=== PATIENT | male | born 1965 | race Caucasian/White ===

== ENCOUNTER 2024-06-13 13:23 | Emergency (ER) | payer MEDICAID, SELFPAY ==
--- NOTE | ~2024-06-13 | US_ITS ---
EXAMINATION: US TRIPLEX LOWER EXTREMITY, BILATERAL CLINICAL INFORMATION: Swelling, lower extremities COMPARISON: None available. TECHNIQUE: Color-flow triplex imaging with spectral analysis and compression Doppler were performed on the bilateral lower extremities. FINDINGS: Respiratory variation, normal compression and augmented flow are noted throughout the bilateral lower extremities. The visualized common femoral vein, superficial femoral vein, profunda femoral vein, popliteal vein and midcalf peroneal and posterior tibial venous segments show no evidence of deep venous thrombosis bilaterally. There is no Newton's cyst. US/US venous duplex LE BI IMPRESSION: No acute deep venous thrombosis in the interrogated veins, both lower extremities. Electronically signed by: Leno Edmondson MD 06/13/2024 03:56 PM EST
--- NOTE | ~2024-06-13 | XR_ITS ---
EXAMINATION: XR CHEST 2 VIEW CLINICAL INFORMATION: Leg edema and left chest pain COMPARISON: None TECHNIQUE: PA and lateral views of the chest obtained. FINDINGS: The lungs are clear. There are no pleural effusions. The cardiomediastinal silhouette is normal. There are posttraumatic deformities of the left seventh, eighth and ninth posterior lateral ribs, appearing chronic, with some underlying scar formation. XR/XR chest 2V IMPRESSION: 1. No active cardiopulmonary disease. 2. Chronic appearing left seventh, eighth and ninth rib fractures. Electronically signed by: Malcolm Cuellar MD 06/13/2024 02:19 PM EST
[2024-06-13 13:53] VITALS: BP 122/57; BP 150/70; PULSE 103; PULSE 95; RESP 16; TEMP 36; O2SAT 97; O2SAT 99; BMI 23.6
--- NOTE | 2024-06-13 13:53 | ED_ITS ---
HPI - Extremity Injury (Lower) General Chief Complaint: Extremity Injury, Lower Stated Complaint: BLE PAIN/SWELLING,H/O BROKEN L FOOT PER EMS Time Seen by Provider: 06/13/24 13:53 Source: patient, EMS and RN notes reviewed Mode of arrival: EMS Limitations: no limitations History of Present Illness ED Provider: JESUS WILDER PA-C HPI Narrative: 59 year old female assigned male at presents to the ED today via EMS from [facility] on a [address] for evaluation of bilateral foot/ankle pain/ swelling x3 days. Also reports left sided chest discomfort. Pain is not worse with deep breathing. She cannot reproduce the pain. No associated shortness of breath. She denies any trauma/ injury/ falls. She has not taken anything for the pain. Admits she is currently on hormone therapy for gender change. No recent travel or long car rides. Reports fracture left ankle over 10 years ago. Denies new injury. Denies SI/HI at present. Related Data Allergies Allergy/AdvReac Type Severity Reaction Status Date / Time No Known Allergies Allergy Verified 06/13/24 14:00 Review of Systems 2 Review of Systems: Constitutional: No fever, chills, fatigue, night sweats, weight changes ENT/Mouth: No ear pain, hearing loss, nasal congestion, sinus pain, rhinorrhea, sore throat Eyes: No eye pain, swelling, redness, vision changes, discharge Cardio: No chest pain, palpitations, FRANKS, orthopnea, peripheral edema Pulm: No SOB, cough, sputum, wheezing, dyspnea, hemoptysis GI: No nausea, vomiting, hematemesis, abdominal pain, diarrhea, constipation, hematochezia, melena : No irregular bleeding, dysuria, frequency, urgency, hesitancy, hematuria, flank pain, urinary flow changes, urinary incontinence or retention MSK: No back pain, neck pain, joint pain, myalgias, +LE pain/ swelling Skin: No lesions, rashes Neuro: No weakness, numbness, paresthesias, LOC, dizziness, headache Psych: No anxiety/panic, depression, SI/HI, AH/VH All other systems reviewed and are negative. [facility] Past Medical History Attestation statement: The following information was validated with the patient. Source: old records reviewed and nursing notes reviewed Social History Social History Smoked in Last 30 Days: No Use of substances other than those prescribed or required for medical reasons: No Advance Directives: No Advance Directives Information Provided: No Physical Exam 2 Vital Signs: Vital Signs: Last Vital Signs Temp 97.6 F 06/13/24 19:05 Pulse 89 06/13/24 19:05 Resp 18 06/13/24 19:05 BP 127/64 06/13/24 19:05 Pulse Ox 99 06/13/24 19:05 O2 Del Method Room Air 06/13/24 19:05 BMI result Body Mass Index 23.6 vital signs stable. afebrile. not tachycardic. not hypoxic. General: Well appearing, in no acute distress. Skin: Warm, dry, intact. No rashes or lesions. Head: Normocephalic, atraumatic. EENT: Hearing is intact b/l. Conjunctiva clear. PERRLA. EOM intact. Moist mucous membranes.? Cardiac: Chest wall symmetric. RRR. No JVD. Lungs: Normal respiratory effort without accessory muscle use. CTA bilaterally. No crackles. Back: No midline spinous or paraspinal tenderness. No step off deformity. Ext: + non pitting edema noted to b/l feet/ ankles (L>R) to mid calf. no overlying deformity or erythema. FROM intact to ankles/ toes. non tender. no crepitus/ deformity/ fluctuance/ warmth. no calf tenderness. 2+ dp/pt pulses intact. Neuro: AOx3. Normal speech. Ambulating with steady gait. Psych: Appropriate mood and affect. Responds appropriately to questions. Course Course Course Narrative: CBC with normocytic anemia. there are no priors to compare to. h&h is above transfusion threshold. i do not have concern for acute blood loss. there is no leukocytosis or left shift. chemistry without acute electrolyte abnormality requiring intervention. no yandy. normal liver function. troponin undetectable. bnp wnl at 25. no concern for fluid overload/ CHF. chest xray demonstrates ?chronic appearing fractures to left lateral 7/8/9 ribs. I did discuss this finding wtih patient. she reports fracturing her ribs years ago. no concern for acute rib fracture as cause of patient's pain. there is no evidence of pneumonia. no effusion. venous duplex of b/l LE does not demonstrate clot. > I discussed all work up results with patient. exam is consistent with dependent edema. I am not concerned for fracture and do no not feel as though xrays would be beneficial at this time. her exam is not consistent with gout/ pseudo gout/ septic or lyme arthritis. > recommend patient where compression stockings. discussed elevating her legs to help with swelling. tylenol provided for pain control while in ED. Patient has remained stable throughout ED visit today. Discussed worrisome signs and symptoms and when to return to the ED. All questions answered at this time. Patient is agreeable with disposition and stable for discharge back to [facility]. Medications Administered Discontinued Medications Generic Name Dose Route Start Last Admin Trade Name Freq PRN Reason Stop Dose Admin Acetaminophen 975 mg 06/13/24 14:00 06/13/24 14:16 Acetaminophen 325 Mg Tablet PO 06/13/24 14:01 975 mg ONCE ONE Administration Medical Decision Making Medical Decision Making [facility] Narrative: 59 year old female assigned male at presents to the ED today via EMS from [facility] on a [address] for evaluation of bilateral foot/ankle pain/ swelling x3 days. Vital signs stable. she is nontoxic appearing and in nad. lying comfortably on the exam bed. non pitting edema noted to b/l feet/ ankles (L>R) to mid calf. no overlying deformity or erythema. FROM intact to ankles/ toes. non tender. no crepitus/ deformity/ fluctuance/ warmth. no calf tenderness. 2+ dp/pt pulses intact. Differential diagnosis includes anemia, electrolyte abnormality, dehydration, dependent edema, ACS, arrhythmia, CHF, DVT, arthritis Presentation not consistent with gout, psuedogout, lyme arthritis, septic joint, fracture, dislocation Unlikely nv compromise, threat to limb, compartment syndrome. Plan for labs, ekg, cxr, venous duplex. Differential Diagnosis Differential Diagnoses: The differential diagnosis associated with the presentation includes as above. Admission/Observation not indicated Lab Data [facility] Lab Attestation statement: I reviewed the patient's lab results. as above. 06/13/24 14:39 06/13/24 14:39 Labs: Lab Results 06/13/24 Range/Units 14:39 WBC 4.4 L (4.8-10.8) X10*3/uL RBC 3.44 L (4.60-5.80) X10*6/uL Hgb 10.8 L (14.0-18.0) g/dl Hct 32.9 L (42.0-52.0) % MCV 95.6 (80.0-98.0) fL MCH 31.4 (27.0-33.0) pg MCHC 32.8 (31.0-36.0) g/dl RDW 12.6 (11.0-16.0) % Plt Count 165 (160-400) X10*3/uL MPV 9.6 (9.4-12.4) fL Immature Gran % (Auto) 0.2 (0.0-0.4) % Neut % (Auto) 62.8 (45-73) % Lymph % (Auto) 24.0 (20-40) % [place] % (Auto) 8.4 (2-11) % Eos % (Auto) 4.1 H (0-4) % Baso % (Auto) 0.5 (0-2) % Lymph # (Auto) 1.1 L (1.2-4.9) X10*3/uL [place] # (Auto) 0.4 (0.1-1.2) X10*3/uL Eos # (Auto) 0.2 (0.0-0.4) X10*3/uL Baso # (Auto) 0.0 (0.0-0.2) X10*3/uL Abs Immat Gran (auto) 0.01 (0.00-0.03) X10*3/uL Absolute Neuts (auto) 2.8 (2.0-8.3) x10*3/uL Absolute Nucleated RBC 0.000 (0.0-0.012) X10*3/uL Nucleated RBC % (auto) 0.0 (0.0-0.2) /100WBC PT 10.8 L (10.9-12.4) SEC INR 0.9 (0.9-1.1) Sodium 140 (135-145) mmol/L Potassium 4.4 (3.3-5.1) mmol/L Chloride 108 (96-108) mmol/L Carbon Dioxide 26 (22-29) mmol/L Anion Gap 10 L (12-20) BUN 20 H (9-16) mg/dL Creatinine 1.27 (0.5-1.4) mg/dL Estim Creat Clear Calc 61.0 Estimated GFR 58 Random Glucose 103 (60-115) mg/dL Calcium 8.8 (8.4-10.2) mg/dL Magnesium 2.2 (1.6-2.6) mg/dL Total Bilirubin 0.2 (0.0-1.0) mg/dL AST 26 (5-37) U/L ALT 31 (0-40) U/L Alkaline Phosphatase 60 (39-117) U/L Troponin I High Sens < 2.7 (<3.5-35.0) ng/L B-Natriuretic Peptide 25 (<100) pg/mL Total Protein 6.5 (6.5-8.0) g/dL Albumin 3.9 (3.5-5.0) g/dL Urine Color Yellow Urine Appearance Clear Urine pH 7.0 (5.0-9.0) Ur Specific [place] <= 1.005 (1.005-1.025) Urine Protein Negative (Neg-Trace) mg/dL Urine Glucose (UA) Negative (Negative) mg/dL Urine Ketones Negative (Negative) mg/dL Urine Blood Negative (Negative) Urine Nitrite Negative (Negative) Ur Leukocyte Esterase Negative (Negative) Independent Interpretation I performed an independent interpretation of an: EKG, Plain X-Ray and Ultrasound Interpretation: cxr without infiltrate or consolidation ekg showing normal sinus rhythm with rate of 83 bpm, no acute ischemic changes or st elevations venous duplex without clot Radiology Impression Discussion of test interpretation with radiology: I have reviewed the radiologist's reading. Radiologist Impression: EXAMINATION: US TRIPLEX LOWER EXTREMITY, BILATERAL CLINICAL INFORMATION: Swelling, lower extremities COMPARISON: None available. TECHNIQUE: Color-flow triplex imaging with spectral analysis and compression Doppler were performed on the bilateral lower extremities. FINDINGS: Respiratory variation, normal compression and augmented flow are noted throughout the bilateral lower extremities. The visualized common femoral vein, superficial femoral vein, profunda femoral vein, popliteal vein and midcalf peroneal and posterior tibial venous segments show no evidence of deep venous thrombosis bilaterally. There is no Newton's cyst. US/US venous duplex LE BI IMPRESSION: No acute deep venous thrombosis in the interrogated veins, both lower extremities. Electronically signed by: Leno Edmondson MD 06/13/2024 03:56 PM EST RP EXAMINATION: XR CHEST 2 VIEW CLINICAL INFORMATION: Leg edema and left chest pain COMPARISON: None TECHNIQUE: PA and lateral views of the chest obtained. FINDINGS: The lungs are clear. There are no pleural effusions. The cardiomediastinal silhouette is normal. There are posttraumatic deformities of the left seventh, eighth and ninth posterior lateral ribs, appearing chronic, with some underlying scar formation. XR/XR chest 2V IMPRESSION: 1. No active cardiopulmonary disease. 2. Chronic appearing left seventh, eighth and ninth rib fractures. Electronically signed by: Malcolm Cuellar MD 06/13/2024 02:19 PM EST RP Independent Historian Clinical information obtained from an independent historian. History obtained from or confirmed by: EMS External Record Review External record reviewed: Inpatient record Prescription Management I considered prescription management with: Pain Medication Social Determinants Patient?s care significantly limited by Social Determinants of Health including: Other Social Determinant of Health Critical Care Time Critical Care Time Critical Care Time: No Discharge Plan Discharge Clinical Impression: Dependent edema Patient Disposition: Home, Self-Care Instructions: Edema (ED) Additional Instructions: You were evaluated in the ED today for swelling to both of your feet. Your blood work today is reassuring Your heart enzymes are normal. Your EKG is normal. Your chest x-ray shows old fractures of your left 7th, 8th, 9th ribs which you are aware of. There is no evidence of pneumonia. The ultrasound of your legs do not demonstrate clot. As discussed, the etiology of your swelling is unclear. I recommend wearing compression stockings which will help with swelling. Please have your provider at [facility] order these for you. I also recommend taking 600mg ibuprofen every 6 hours or Tylenol 650mg every 6 hours as needed for pain. If needed, you can alternate these medications so that you take one medication every 3 hours. For example, at noon take ibuprofen, then at 3pm take Tylenol, then at 6pm take ibuprofen. Make sure you are elevating your feet above your heart to reduce the swelling. Return with any new or worsening symptoms. In the case of an emergency call 911. Interventions: ED Discharge Assessment Last Done: 06/13/24 19:05 Discharge Date/Time: 06/13/24 19:06 Print Language: Czech
--- NOTE | 2024-06-13 13:58 | ECG_ITS ---
Test Reason : CHEST PAIN Blood Pressure : / mmHG Vent. Rate : 084 BPM Atrial Rate : 084 BPM P-R Int : 118 ms QRS Dur : 082 ms QT Int : 386 ms P-R-T Axes : 065 084 057 degrees QTc Int : 456 ms Normal sinus rhythm Cannot rule out Anterior infarct , age undetermined Abnormal ECG No previous ECGs available Referred By: Shira Harrison Electronically Signed By:Carlitos Morris
[2024-06-13] MEDS: Acetaminophen 325 MG TABLET 975 MG PO (14:16)
[2024-06-13 14:47] LABS: MANUAL DIFF FLAG NO
[2024-06-13 14:49] LABS: Basophils Percent Auto 0.5 % (0-2); Eosinophils Absolute Auto 0.2 X10*3/uL (0.0-0.4); Eosinophils Percent Auto 4.1 % (0-4); Hematocrit 32.9 % (42.0-52.0); Hemoglobin 10.8 g/dl (14.0-18.0); Imm Gran Abs Auto 0.01 X10*3/uL (0.00-0.03); Imm Gran Pct Auto 0.2 % (0.0-0.4); Lymphocytes Absolute Auto 1.1 X10*3/uL (1.2-4.9); Mean Corpuscular HGB Conc 32.8 g/dl (31.0-36.0); Mean Corpuscular Hemoglobin 31.4 pg (27.0-33.0); Mean Corpuscular Volume 95.6 fL (80.0-98.0); Mean Platelet Volume 9.6 fL (9.4-12.4); Monocytes Absolute Auto 0.4 X10*3/uL (0.1-1.2); Monocytes Percent Auto 8.4 % (2-11); Neutrophils Absolute Auto 2.8 x10*3/uL (2.0-8.3); Neutrophils Percent Auto 62.8 % (45-73); Platelet Count 165 X10*3/uL (160-400); Red Blood Count 3.44 X10*6/uL (4.60-5.80); Red Cell Distribution Width 12.6 % (11.0-16.0); White Blood Count 4.4 X10*3/uL (4.8-10.8)
[2024-06-13 14:50] LABS: Appearance Urine Clear; Color Urine Yellow; Glucose Urine UA Negative (Negative); Leukocyte Esterase Urine Negative (Negative); Nitrite Urine Negative (Negative); Specific Gravity - Urine <= 1.005 (1.005-1.025); Urine Blood Negative (Negative); Urine Ketones Negative (Negative); Urine Protein Negative (Neg-Trace)
[2024-06-13 14:54] LABS: INTERNATIONAL NORM RATIO 0.9 (0.9-1.1); Prothrombin Time 10.8 SEC (10.9-12.4)
[2024-06-13 15:07] LABS: Alanine Aminotransferase 31 U/L (0-40); Albumin Level 3.9 g/dL (3.5-5.0); Alkaline Phosphatase 60 U/L (39-117); Anion Gap 10 (12-20); Aspartate Amino Transferase 26 U/L (5-37); Bilirubin Total 0.2 mg/dL (0.0-1.0); Blood Urea Nitrogen 20 mg/dL (9-16); Calcium 8.8 mg/dL (8.4-10.2); Carbon Dioxide 26 mmol/L (22-29); Chloride 108 mmol/L (96-108); Estimated Glomerular Filt Rate 58; Glucose Random 103 mg/dL (60-115); Magnesium 2.2 mg/dL (1.6-2.6); Potassium 4.4 mmol/L (3.3-5.1); Sodium 140 mmol/L (135-145); Total Protein 6.5 g/dL (6.5-8.0)
[2024-06-13 15:11] LABS: B Type Natriuretic Peptide 25 pg/mL (<100)
[2024-06-13 15:16] LABS: Troponin-I High Sensitivity < 2.7 ng/L (<3.5-35.0)
[2024-06-13 18:29] VITALS: BP 127/64; PULSE 89; RESP 18; TEMP 36.4; O2SAT 99
[2024-06-13 19:05] VITALS: BP 127/64; PULSE 89; RESP 18; TEMP 36.4; O2SAT 99
== END 2024-06-13 19:06 | disposition home or self-care (01) ==
PROVIDERS: Physician Assistant Medical; Emergency Provider Emergency Medicine
DX: R60.9 Edema, unspecified (principal); M79.672 Pain in left foot; M79.671 Pain in right foot; M79.89 Other specified soft tissue disorders; Z13.39 Encounter for screening examination for other mental health and behavioral disorders; Z65.3 Problems related to other legal circumstances
CPT/HCPCS: 36415; 71046; 80053; 81003; 83735; 83880; 84484; 85025; 85610; 93005; 93970; 99284

== ENCOUNTER → 2024-06-13 13:58 | Outpatient (BNV) | payer MEDICAID, SELFPAY | PROVIDERS: Emergency Provider Emergency Medicine; Visit Provider Internal Medicine Cardiovascular Disease | DX: R94.31 Abnormal electrocardiogram [ECG] [EKG] (principal) | CPT/HCPCS: 93010 ==

== ENCOUNTER → 2024-06-13 13:58 | Outpatient (BNV) | payer MEDICAID, SELFPAY | PROVIDERS: Emergency Provider Emergency Medicine; Visit Provider Radiology Diagnostic Radiology | DX: R22.43 Localized swelling, mass and lump, lower limb, bilateral (principal) | CPT/HCPCS: 93970 ==